=== PATIENT | male | born 1995 | race Caucasian/White ===

== ENCOUNTER 2020-08-21 03:02 | Emergency (ER) | payer SELFPAY ==
[2020-08-21] MEDS ORDERED: Diazepam 10 MG/2 ML SYRINGE ONE (03:22)
[2020-08-21] MEDS ORDERED: Ketorolac Tromethamine 30 MG/ML VIAL ONE (03:22)
[2020-08-21] MEDS ORDERED: Cyclobenzaprine 10 MG TAB ONE (03:55)
== END 2020-08-21 03:59 | disposition home or self-care (01) ==
LOC: ERS 03:02
DX: M54.5 Low back pain (principal); G89.29 Other chronic pain; X50.1XXA Overexertion from prolonged static or awkward postures, initial encounter
CPT/HCPCS: 96372; 99283; J1885; J3360